=== PATIENT | male | born 2000 | race Caucasian/White ===

== ENCOUNTER 2021-06-14 15:03 | Emergency (ER) | payer OTHER ==
--- NOTE | 2021-06-14 16:15 | XRAY Report ---
PROCEDURE: Chest 2 View X-Ray INDICATIONS: cough TECHNIQUE: 2 view(s) of the chest. COMPARISON: None. FINDINGS: Surgical changes and devices: None. Lungs and pleura: No pleural effusions or pneumothorax. Lungs are clear. Mediastinum: Mediastinal contours are normal. Heart size is normal. Bones and chest wall: No suspicious bony abnormalities. Soft tissues appear unremarkable. IMPRESSION: Normal chest, without infiltrates. Reviewed by: Geovani Shine MD on 06/14/2021 3:14 PM [place] Approved by: Geovani Shine MD on 06/14/2021 3:14 PM [place] Station ID: [id number]
--- NOTE | 2021-06-14 17:44 | ED Physician Documentation ---
PD HPI URI - Stated complaint Stated Complaint: COUGH,CONGESTION,SHIVERING - Chief complaint Chief Complaint: Resp - History obtained from History obtained from: Patient - History of Present Illness Timing - onset: How many days ago (3) Timing duration: Days (3) Timing details: Gradual onset, Still present Associated symptoms: Fever, Nasal congestion, Rhinorrhea, Productive cough, Dyspnea Contributing factors: No: Sick contact Improves by: Rest, Medication Worsened by: Activity Similar symptoms before: Diagnosis (bronchitis with asthma and covid) Recently seen: Not recently seen - Additional information Additional information: 21-year-old male is a 3-day history of cough congestion and dyspnea. He had Covid back in July of last year and he is immunized. He has had low-grade fever cough sputum production and dyspnea. He has used an inhaler previously for bronchitis. Review of Systems Constitutional: denies: Fever Eyes: denies: Decreased vision Ears: denies: Ear pain Nose: reports: Rhinorrhea / runny nose, Congestion Throat: denies: Sore throat Cardiac: denies: Chest pain / pressure, Palpitations Respiratory: reports: Dyspnea, Cough, Wheezing GI: denies: Abdominal Pain, Nausea, Vomiting : denies: Dysuria, Frequency, Hesitancy PD PAST MEDICAL HISTORY - Past Medical History Past Medical History: No - Past Surgical History Past Surgical History: Yes HEENT: Tonsil/Adenoidectomy - Present Medications Home Medications: Ambulatory Orders Medication Instructions Recorded Confirmed Albuterol Sulf [Ventolin Hfa 1 - 2 puffs INH Q4HR PRN #1 inhaler 06/14/21 Inhaler] Azithromycin [Zithromax] 250 mg PO DAILY #6 tablet 06/14/21 - Allergies Allergies/Adverse Reactions: Allergies Allergy/AdvReac Type Severity Reaction Status Date / Time No Known Drug Allergies Allergy Verified 06/14/21 15:43 - Social History Does the pt smoke?: No Smoking Status: Never smoker Does the pt drink ETOH?: Yes Does the pt have substance abuse?: No - Immunizations Immunizations are current?: Yes PD ED PE NORMAL - Vitals Vital signs reviewed: Yes (Tachycardic) - General General: Alert and oriented X 3, No acute distress, Well developed/nourished - HEENT HEENT: Atraumatic, PERRL, EOMI, Pharynx benign, Other (Right TM is inflamed with distortion of landmarks left is minimally inflamed) - Neck Neck: Supple, no meningeal sign, No bony TTP, No adenopathy - Cardiac Cardiac: RRR, No murmur - Respiratory Respiratory: No respiratory distress, Other (Rhonchi in the right base) - Abdomen Abdomen: Soft, Non tender - Back Back: No CVA TTP, No spinal TTP - Derm Derm: Normal color, Warm and dry, No rash - Extremities Extremities: No deformity, No edema - Neuro Neuro: Alert and oriented X 3, inventory control coordinator 2-12 intact, No motor deficit, No sensory deficit, Normal speech Eye Opening: Spontaneous Motor: Obeys Commands Verbal: Oriented GCS Score: 15 - Psych Psych: Normal mood, Normal affect Results - Vitals Vitals: Vital Signs - 24 hr 06/14/21 15:41 Temperature 37.3 C Heart Rate 102 H Respiratory 16 Rate Blood Pressure 122/78 O2 Saturation 97 Oxygen O2 Source Room air - Rads (name of study) Chest Radiology: Prelim report reviewed (Impression: Normal chest, without infiltrates.), EMP read indepedently, See rad report PD MEDICAL DECISION MAKING - ED course Complexity details: reviewed old records, reviewed results, re-evaluated patient, considered differential, d/w patient ED course: 21-year-old male who has had Covid previously and who has had his immunization has developed cough congestion and wheezing. He is found to have otitis on examination. Chest x-ray does not reveal pneumonia. He is administered dexamethasone 10 mg orally we will place him on a course of azithromycin and a Covid test is pending. Departure - Departure Disposition: 01 Home, Self Care Clinical Impression: Otitis media Qualifiers: Otitis media type: suppurative Chronicity: acute Laterality: right Recurrence: not specified as recurrent Spontaneous tympanic membrane rupture: without spontaneous rupture Qualified Code(s): H66.001 - Acute suppurative otitis media without spontaneous rupture of ear drum, right ear Condition: Stable Instructions: ED Otitis Media Acute Adult, ED Bronchitis Asthmatic Follow-Up: [facility] [Provider Group] Prescriptions: Albuterol Sulf [Ventolin Hfa Inhaler] 1 - 2 puffs INH Q4HR PRN #1 inhaler PRN Reason: Shortness Of Air/Wheezing Azithromycin [Zithromax] 250 mg PO DAILY #6 tablet
[2021-06-14] MEDS ORDERED: CHERRY SYRUP 10 ML UDC PO ONE (17:47)
[2021-06-14] MEDS ORDERED: DEXAMETHASONE 10 MG/ML VIAL PO STA (17:47)
[2021-06-14 17:58] VITALS: BP 120/77
== END 2021-06-14 17:58 | disposition home or self-care (01) ==
LOC: ED 15:03
DX: H66.001 Acute suppurative otitis media without spontaneous rupture of ear drum, right ear (principal); Z20.822 Contact with and (suspected) exposure to COVID-19
CPT/HCPCS: 71046; 87635; 99283; A9270

== ENCOUNTER 2021-09-29 08:44 | Emergency (ER) | payer OTHER ==
[2021-09-29 09:05] VITALS: BP 130/85
--- NOTE | 2021-09-29 09:19 | ED Physician Documentation ---
PD HPI URI - Stated complaint Stated Complaint: SOA - Chief complaint Chief Complaint: Resp - History obtained from History obtained from: Patient - History of Present Illness Timing - onset: How many days ago (few) Timing duration: Days (few) Timing details: Gradual onset, Still present Associated symptoms: Chills, Ear pain (for a day), Nasal congestion, Sore throat, Dry cough Contributing factors: Unimmunized. No: Sick contact Similar symptoms before: Has not had sx before Recently seen: Not recently seen Review of Systems Constitutional: reports: Chills, Myalgias. denies: Fever Ears: reports: Ear pain. denies: Drainage/discharge Nose: reports: Congestion Throat: reports: Sore throat Cardiac: denies: Chest pain / pressure Respiratory: reports: Cough. denies: Dyspnea, Wheezing GI: denies: Abdominal Pain, Nausea, Vomiting, Diarrhea Skin: denies: Rash Neurologic: reports: Headache. denies: Altered mental status PD PAST MEDICAL HISTORY - Past Medical History Cardiovascular: None Respiratory: None - Past Surgical History Past Surgical History: Yes HEENT: Tonsil/Adenoidectomy - Present Medications Home Medications: Ambulatory Orders Medication Instructions Recorded Confirmed Amoxicillin 500 mg PO TID #21 cap 09/29/21 Benzonatate [Tessalon] 100 mg PO TID PRN #20 cap 09/29/21 dexAMETHasone [Decadron] 4 mg PO DAILY #5 tablet 09/29/21 diphenhydrAMINE ELIXIR [Benadryl 25 mg PO Q6H PRN #240 ml 09/29/21 Elixir] - Allergies Allergies/Adverse Reactions: Allergies Allergy/AdvReac Type Severity Reaction Status Date / Time No Known Drug Allergies Allergy Verified 09/29/21 09:03 - Social History Does the pt smoke?: No Smoking Status: Never smoker Does the pt drink ETOH?: Yes Does the pt have substance abuse?: No - Immunizations Immunizations are current?: Yes PD ED PE NORMAL - Vitals Vital signs reviewed: Yes - General General: Alert and oriented X 3, No acute distress, Well developed/nourished - HEENT HEENT: Pharynx benign. No: Ears normal (right is okay; left with redness and bulging, no perforation.) - Neck Neck: Supple, no meningeal sign, No adenopathy - Cardiac Cardiac: RRR, No murmur - Respiratory Respiratory: Clear bilaterally - Abdomen Abdomen: Soft, Non tender - Derm Derm: Normal color, Warm and dry, No rash - Neuro Neuro: Alert and oriented X 3, No motor deficit, Normal speech Results - Vitals Vitals: Oxygen O2 Source Room air PD MEDICAL DECISION MAKING - ED course Complexity details: considered differential (Likely URI with apparent left OM.), d/w patient Departure - Departure Disposition: 01 Home, Self Care Clinical Impression: Upper respiratory infection Qualifiers: URI type: unspecified URI Qualified Code(s): J06.9 - Acute upper respiratory infection, unspecified Otitis media Qualifiers: Otitis media type: suppurative Chronicity: acute Laterality: left Recurrence: non-recurrent Spontaneous tympanic membrane rupture: without spontaneous rupture Qualified Code(s): H66.002 - Acute suppurative otitis media without spontaneous rupture of ear drum, left ear Condition: Stable Record reviewed to determine appropriate education?: Yes Instructions: ED Upper Resp Infec Abx Tx Follow-Up: [facility] [Provider Group] Prescriptions: Amoxicillin 500 mg PO TID #21 cap diphenhydrAMINE ELIXIR [Benadryl Elixir] 25 mg PO Q6H PRN #240 ml PRN Reason: Pain dexAMETHasone [Decadron] 4 mg PO DAILY #5 tablet Benzonatate [Tessalon] 100 mg PO TID PRN #20 cap PRN Reason: Cough Comments: Your Covid test should result in a day or 2. We will treated as a likely viral upper respiratory infection but there is signs of ear infection on the left. Use amoxicillin 3 times a day for a week for the ear infection. Benzonatate if needed for cough. Decadron steroid for inflammation of the airways daily for the next 5 days. Add Tylenol if needed for pains and fevers. Benadryl liquid if needed for sore throat and congestion. Off work for 2 to 3 days pending feeling better and Covid test results. Recheck if not improved well over the next few days. Your prescriptions were transmitted to [facility] pharmacy. My Covid test you have a Covid test pending. You need to self quarantine until the result is done and negative. Do not leave your house. Do not get near anybody. The results should be done in 48 to 72 hours, but sometimes longer. We will call with a positive result, the fastest way to get a negative result for confirmation though is to go to the hospital website at [email or web address], click on the my [facility] tab and sign up for the patient portal. If any friends or family get sick and would like to have a Covid test done, but do not have signs or symptoms that would necessitate being hospitalized, we encourage testing throughone of the local pharmacies or the Health Department. Call them to schedule an appointment. Forms: Activity restrictions Discharge Date/Time: 09/29/21 11:19
[2021-09-29] MEDS ORDERED: CHERRY SYRUP 10 ML UDC PO ONE (10:19)
[2021-09-29] MEDS ORDERED: AMOXICILLIN 250 MG CAPSULE PO STA (10:19)
[2021-09-29] MEDS ORDERED: BENZONATATE 100 MG CAPSULE PO STA (10:19)
[2021-09-29] MEDS ORDERED: diphenhydrAMINE ELIXIR 25 MG/10 ML UDC PO STA (10:19)
[2021-09-29] MEDS ORDERED: DEXAMETHASONE 10 MG/ML VIAL PO STA (10:19)
== END 2021-09-29 11:19 | disposition home or self-care (01) ==
LOC: ED 08:44
DX: J06.9 Acute upper respiratory infection, unspecified (principal); H66.002 Acute suppurative otitis media without spontaneous rupture of ear drum, left ear; Z20.822 Contact with and (suspected) exposure to COVID-19
CPT/HCPCS: 87635; 99283; 99284; A9270

== ENCOUNTER 2023-05-02 12:48 | Outpatient (CLI) | payer OTHER ==
[~2023-05-02 12:48] MED LIST: GADOBUTROL 7.5 MMOL/7.5 ML VIAL ONE; LIDOCAINE-MPF 1% 5 ML VIAL ONE
[2023-05-02] MEDS ORDERED: iohexoL-240 10 ML VIAL IVP ONE (14:00)
[2023-05-02] MEDS ORDERED: GADOBUTROL 7.5 MMOL/7.5 ML VIAL IVP ONE (14:01)
[2023-05-02] MEDS ORDERED: LIDOCAINE-MPF 1% 5 ML VIAL TD ONE (14:02)
--- NOTE | 2023-05-02 16:41 | XRAY Report ---
PROCEDURE: Arthrogram Needle Placement INDICATIONS: INJURY OF SHOULDER FLUOROSCOPY TIME: 0.1 MIN TECHNIQUE: The indications, alternatives, benefits, risks, and complications of the procedure were explained to the patient. Written informed consent was obtained and placed in the chart. The shoulder was examin ed fluoroscopically and a site for needle placement chosen for entry into the glenohumeral joint from an anterior approach. The skin was prepped and draped in the usual fashion, and 1% lidocaine infilt rated from skin down to joint capsule. A spinal needle was inserted into the glenohumeral joint, and a small amount of iodinated contrast media injected to confirm intra-articular placement of the need le tip. This was followed by approximately 12 mL dilute solution of a gadolinium containing MR contr ast agent. The needle was removed and a dressing was applied. The patient was given postprocedural instructions and sent to the MR suite for MR imaging. FINDINGS: A single fluoroscopic spot image demonstrates intra-articular location of injected iodinated contrast . IMPRESSION: Successful fluoroscopically guided administration of dilute Gadolinium solution into the shoulder santiago leonard for MR arthrogram. Reviewed by: Jorge Riggins MD on 05/02/2023 4:40 PM PDT Approved by: Jorge Riggins MD on 05/02/2023 4:40 PM PDT Station ID: [id number]
--- NOTE | 2023-05-02 21:14 | MRI Report ---
PROCEDURE: ARTHROGRAM SHOULDER - RT INDICATIONS: INJURY OF SHOULDER TECHNIQUE: After the administration of 12 mL of dilute intra-articular Gadolinium contrast, oblique coronal T1 a nd T2 spin echo with fat saturation, oblique sagittal T1 spin echo with and without fat saturation, o blique sagittal T2 fast spin echo with fat saturation, axial T1 spin echo with fat saturation through the shoulder. COMPARISON: None. FINDINGS: Image quality: Excellent. Rotator cuff: Where articular and bursal surface partial-thickness tear involving distal supraspinatu s at its insertion on humeral head is seen extending to musculotendinous junction. Distal infraspinat us tendinosis is seen. Distal subscapularis tendon is intact. No full-thickness rotator cuff tendon r upture. No rotator cuff muscle atrophy on sagittal images. Bones and bursae: No bone marrow contusions or fractures. No acromioclavicular joint degeneration. The acromion demonstrates conventional anatomy, without an os acromiale. Capsule and soft tissues: Subtle signal abnormality, fraying and contrast retention involving superio r posterior superior labrum at 10 to 12:00 position is seen. The glenohumeral ligaments appear intact . The long head of the biceps tendon demonstrates normal location and morphology. The rotator inter fernie appears normal, without fibrosis. The coracohumeral ligament is of normal thickness. No intra-a rticular bodies. IMPRESSION: 1. Low-grade articular and bursal surface partial-thickness tear involving distal supraspinatus exten ding to musculotendinous junction. Distal infraspinatus tendinosis. No full-thickness rotator cuff te ndon rupture. 2. No marrow edema. No fracture or dislocation. No suspicious bony lesions. No intra-articular loose bodies. 3. Suggestion of posterior superior labral tear at 10 to 12:00 position. Reviewed by: Jorge Moore MD on 05/02/2023 9:13 PM PDT Approved by: Jorge Moore MD on 05/02/2023 9:13 PM PDT Station ID: [id number]
== END 2023-05-02 12:49 | disposition home or self-care (01) ==
LOC: DI 12:48
PROVIDERS: ATTEND Internal Medicine
DX: M75.111 Incomplete rotator cuff tear or rupture of right shoulder, not specified as traumatic (principal)
CPT/HCPCS: 23350; 73222; 77002; A9585; Q9966